=== PATIENT | male | born 1960 | race Caucasian/White ===

== ENCOUNTER 2018-07-12 10:10 | Outpatient (CLI) | payer OTHER ==
--- NOTE | 2018-07-12 12:32 | MRI ---
MRI RIGHT KNEE PERFORMED WITHOUT CONTRAST ENHANCEMENT: HISTORY: Knee pain x1 year. FINDINGS: The anterior as well as posterior cruciate ligaments are intact. The lateral meniscus is normal in shape and appearance. There is an undersurface flap type tear involving the posterior horn and body region of the medial me niscus. The tear extends into the periphery of the meniscus. There is a small displaced flap compon ent with a tiny meniscal fragment displaced toward the meniscotibial recess. The medial as well as lateral collateral ligaments and iliotibial band regions are unremarkable. The patella is slightly laterally tilted and subluxed. There are some grade 2 chondromalacia changes of the medial facet of the patellar. There is some fissuring involving less than 50% of the thickne ss of the patella. Medial and lateral patellar retinaculum are normal in appearance. The quadriceps tendon is normal. Minimal patellar tendinosis is present. A small joint effusion is seen with sugg estion of some mild synovitis type changes. IMPRESSION: 1. Flap tear involving the posterior horn and body region of the medial meniscus with a small periph erally displaced flap fragment displaced into the meniscotibial recess. 2. There are some grade 2 chondromalacia changes of the medial facet of the patella. POS: [facility]
== END 2018-07-12 10:11 | disposition home or self-care (01) ==
LOC: TBSIIMAG 10:10
PROVIDERS: ATTEND Orthopaedic Surgery
DX: M25.561 Pain in right knee (principal); S83.221A Peripheral tear of medial meniscus, current injury, right knee, initial encounter; M22.41 Chondromalacia patellae, right knee